=== PATIENT | male | born 1990 | race Caucasian/White ===

== ENCOUNTER 2020-10-02 10:52 | Outpatient (REF) | payer OTHER, SELFPAY ==
[2020-10-02 12:53] LABS: MANUAL DIFF FLAG NO
[2020-10-02 12:57] LABS: Basophils Percent Auto 0.7 % (0-2); Eosinophils Absolute Auto 0.2 X10*3/uL (0.0-0.4); Eosinophils Percent Auto 2.7 % (0-4); Hematocrit 47.7 % (42-52); Hemoglobin 16.4 g/dl (14.0-18.0); Imm Gran Abs Auto 0.02 X10*3/uL (0.00-0.03); Imm Gran Pct Auto 0.3 % (0.0-0.4); Lymphocytes Absolute Auto 2.5 X10*3/uL (1.2-4.9); Mean Corpuscular HGB Conc 34.4 g/dl (31.0-36.0); Mean Corpuscular Hemoglobin 33.1 pg (27.0-33.0); Mean Corpuscular Volume 96.4 fL (80-98); Mean Platelet Volume 9.2 fL (9.4-12.4); Monocytes Absolute Auto 0.5 X10*3/uL (0.1-1.2); Neutrophils Absolute Auto 2.8 X10*3/uL (2.0-8.3); Neutrophils Percent Auto 46.3 % (45-73); Platelet Count 191 X10*3/uL (160-400); Red Blood Count 4.95 X10*6/uL (4.60-5.80); Red Cell Distribution Width 11.9 % (11.0-16.0)
[2020-10-02 14:05] LABS: Alanine Aminotransferase 40 U/L (0-40); Albumin Level 4.6 g/dL (3.5-5.0); Alkaline Phosphatase 56 U/L (39-117); Anion Gap 17 (12-20); Aspartate Amino Transferase 27 U/L (5-37); Bilirubin Total 0.5 mg/dL (0.0-1.0); Blood Urea Nitrogen 19 mg/dL (9-16); Calcium 9.2 mg/dL (8.4-10.2); Carbon Dioxide 23 mmol/L (22-29); Chloride 106 mmol/L (96-108); Cholesterol 200 mg/dL; Estimated Glomerular Filt Rate > 60; Glucose Fasting 98 mg/dL (60-99); HDL Cholesterol 42 mg/dL; LDL Cholesterol Calculated 124 mg/dl; Potassium 4.2 mmol/l (3.3-5.1); Sodium 142 mmol/L (135-145); Total Protein 7.2 g/dL (6.5-8.0); Triglycerides 174 mg/dL
== END 2020-10-02 10:53 | disposition home or self-care (01) ==
LOC: HO.MANLDS 10:52
PROVIDERS: PCP Internal Medicine; Visit Provider Internal Medicine
DX: I47.1 Supraventricular tachycardia (principal)
CPT/HCPCS: 36415; 80053; 80061; 85025

== ENCOUNTER 2022-06-09 | Emergency (ER) | payer OTHER, SELFPAY ==
--- NOTE | ~2022-06-09 | XR_ITS ---
EXAMINATION: XR HAND, RIGHT CLINICAL INFORMATION: Injury to hand COMPARISON: None TECHNIQUE: PA, lateral, and oblique views of the right hand. FINDINGS: The bones and soft tissues are normal. No fracture. Alignment is anatomic. Joint spaces are maintained. No erosions or soft tissue calcifications. XR/XR hand RT 2V IMPRESSION: Normal right hand.
[2022-06-09 00:12] VITALS: BP 149/94; PULSE 72; RESP 16; TEMP 36.6; O2SAT 98; BMI 29.2
[2022-06-09 00:16] VITALS: BP 133/70; PULSE 62; RESP 18; TEMP 36.7; O2SAT 99
--- NOTE | 2022-06-09 00:16 | ED_ITS ---
HPI - Extremity Problem General Chief complaint: Extremity Problem Stated complaint: [employer] hand injury @ work Time Seen by Provider: 06/09/22 00:07 Source: patient Mode of arrival: ambulatory Limitations: no limitations History of Present Illness HPI Narrative: Patient is [employer] complaining of right hand pain after making an arrest patient has to hold the patient down and somehow injured his right hand no significant swelling patient able to make fist feeling less slightly spasm in the muscles no deficit neurovascular intact Related Data Allergies Allergy/AdvReac Type Severity Reaction Status Date / Time amoxicillin [AMOXICILLIN] Allergy Unknown HIVES Unverified 06/15/20 16:13 Penicillins [PENICILLINS] Allergy Unknown HIVES Unverified 06/15/20 16:13 Review of Systems Review of Systems: Yes all other systems are reviewed and are negative [facility] Social History Social History Advance Directives: No Advance Directives Information Provided: No Physical Exam Vital Signs: Vital Signs: Last Vital Signs Temp 98.1 F 06/09/22 00:16 Pulse 62 06/09/22 00:16 Resp 18 06/09/22 00:16 BP 133/70 06/09/22 00:16 Pulse Ox 99 06/09/22 00:16 O2 Del Method 06/09/22 00:16 BMI result Body Mass Index 29.2 Const: General: cooperative, healthy appearing, comfortable and no acute distress Orientation/consciousness: patient oriented x3 HEENT: Head: Yes normal to inspection Ears: hearing grossly normal bilaterally Neck: Neck: Yes normal visual inspection and Yes full ROM Resp: Effort & Inspection: normal respiratory effort and able to speak in complete sentences Auscultation: clear to auscultation bilaterally Cardio: Rate: regular rate Rhythm: regular rhythm GI: Inspection: Yes normal to inspection Palpation (GI): Soft to palpation and nontender Neuro: General: patient oriented x3 and gait normal Extrem: Hand/finger images: 1. Soft tissue tenderness at the base of right index and middle finger good faced neurovascular intact no deformity MDM - Extremity (Nontraumatic) MDM Narrative Medical decision making narrative: X-ray negative for fracture clinically patient has soft tissue injury of right hand advised to rest right hand apply ice ibuprofen for pain Discharge Plan Discharge Clinical Impression: Contusion of hand, right Patient Disposition: Home, Self-Care Instructions: Contusion in Adults (ED) Additional Instructions: Rest, apply ice, ibuprofen for pain X-rays negative for fracture Likely muscular strain which expected to get better in 2- 3 days with full recovery
--- NOTE | 2022-06-09 00:49 | PC.NURSE ---
My initial assessment was also performed at time of d/c. Pt. was sitting in a reclining chair, alert and oriented, under no apparent distress.
== END 2022-06-09 01:17 | disposition home or self-care (01) ==
PROVIDERS: Emergency Provider Internal Medicine; PCP Internal Medicine
DX: S60.221A Contusion of right hand, initial encounter (principal); Y29.XXXA Contact with blunt object, undetermined intent, initial encounter; Y93.9 Activity, unspecified; Y92.9 Unspecified place or not applicable; Y99.0 Civilian activity done for income or pay
CPT/HCPCS: 73120; 99282; 99283

== ENCOUNTER → 2022-06-11 08:07 | Outpatient (BNVA) | payer OTHER, SELFPAY | PROVIDERS: PCP Internal Medicine; Visit Provider Physician Assistant Medical | DX: S60.211A Contusion of right wrist, initial encounter (principal); Y29.XXXA Contact with blunt object, undetermined intent, initial encounter | CPT/HCPCS: 99203 ==

== ENCOUNTER → 2022-06-14 09:42 | Outpatient (BNVA) | payer OTHER, SELFPAY | PROVIDERS: PCP Internal Medicine; Visit Provider Physician Assistant Medical | DX: S60.211A Contusion of right wrist, initial encounter (principal); Y29.XXXA Contact with blunt object, undetermined intent, initial encounter | CPT/HCPCS: 99213 ==

== ENCOUNTER → 2022-06-21 10:34 | Outpatient (BNVA) | payer OTHER, SELFPAY | PROVIDERS: PCP Internal Medicine; Visit Provider Physician Assistant Medical | DX: S60.211A Contusion of right wrist, initial encounter (principal); Y29.XXXA Contact with blunt object, undetermined intent, initial encounter | CPT/HCPCS: 99213 ==

== ENCOUNTER 2022-06-24 13:30 | Outpatient (RCR) | payer OTHER, SELFPAY ==
--- NOTE | 2022-06-19 14:31 | MHC.OT.EP ---
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 He is now weaning from a wrist support and continues to avoid heavy use due to inc discomfort with lifting etc. Today he presents with complaint of wrist discomfort and weakness . Dec frame wirer strength and slight tremor noted with resistance. Pt will benefit from a short course of OT to progress strengthening ther ex to safely RTW Frequency and Duration: The patient will be seen 2x wk x 3 wks Short Term Goals: Indep with HEP Tolerate partial wt bearing on right hand Mild discomfort with daily actitivies including yard work and cycling Quick DASH score <15 pts Right frame wirer > 90 lb Jail Goals: Same as above Treatment Plan: Therapeutic Exercise Therapeutic Activity Home Exercise Program Patient Education Fluidotherapy Electronically Signed By: Stephanie tapia OT CHT CLT Please Sign and return to therapist. Thank you once again for your referral.
--- NOTE | 2022-07-18 09:44 | MHC.OT.DC ---
[address] [phone] F: [phone] Occupational Therapy Discharge Note Provider: Jessica Salter Diagnosis: Right wrist contusion/sprain Date of Surgery: Date of Evaluation: 06/19/22 Date of Discharge: 07/18/22 Treatments to Date: 2 Cancellations to Date: 1 No Shows to Date: Discharge Status: Discharge Summary: Last visit pt demonstrated good tolerance with hand ther ex. Reported trialed weed wacking but felt uncomfortable 2 cx due to therapist illness. Pt cx last scheduled appt. Electronically Signed By: Stephanie tapia OT CHT CLT Reviewed/agree with student documentation: N/A Therapist: Please Sign and return to therapist, thank you for your referral.
== END 2022-07-18 09:45 | disposition home or self-care (01) ==
LOC: HO.OT 13:30
PROVIDERS: PCP Internal Medicine; Visit Provider Physician Assistant Medical
DX: S63.501D Unspecified sprain of right wrist, subsequent encounter (principal); S60.211D Contusion of right wrist, subsequent encounter
CPT/HCPCS: 97110; 97165

== ENCOUNTER → 2022-06-27 11:09 | Outpatient (BNVA) | payer OTHER, SELFPAY | PROVIDERS: PCP Internal Medicine; Visit Provider Physician Assistant Medical | DX: S60.211A Contusion of right wrist, initial encounter (principal); Y29.XXXA Contact with blunt object, undetermined intent, initial encounter | CPT/HCPCS: 99213 ==

== ENCOUNTER 2023-11-12 11:10 | Outpatient (REF) | payer OTHER, SELFPAY ==
--- NOTE | ~2023-11-12 | XR_ITS ---
Examination: Bilateral ankles COMPARISON: Right ankle from 05/30/2018 CLINICAL INFORMATION: Bilateral pain TECHNIQUE: AP oblique and lateral views of each ankle. FINDINGS: Left ankle 3 views revealed no fractures subluxations or soft tissue abnormalities. Ankle mortise is well maintained. Right ankle 3 views revealed no evidence of fracture subluxation or degenerative changes. XR/XR ankle LT min 3V IMPRESSION: No evidence of fracture or degenerative changes.
--- NOTE | ~2023-11-12 | XR_ITS ---
Examination: Bilateral ankles COMPARISON: Right ankle from 05/30/2018 CLINICAL INFORMATION: Bilateral pain TECHNIQUE: AP oblique and lateral views of each ankle. FINDINGS: Left ankle 3 views revealed no fractures subluxations or soft tissue abnormalities. Ankle mortise is well maintained. Right ankle 3 views revealed no evidence of fracture subluxation or degenerative changes. XR/XR ankle RT min 3V IMPRESSION: No evidence of fracture or degenerative changes.
[2023-11-12 11:38] LABS: MANUAL DIFF FLAG NO
[2023-11-12 11:57] LABS: Basophils Percent Auto 0.7 % (0-2); Eosinophils Absolute Auto 0.1 X10*3/uL (0.0-0.4); Hematocrit 46.6 % (42.0-52.0); Hemoglobin 16.1 g/dl (14.0-18.0); Imm Gran Abs Auto 0.02 X10*3/uL (0.00-0.03); Imm Gran Pct Auto 0.4 % (0.0-0.4); Lymphocytes Absolute Auto 1.8 X10*3/uL (1.2-4.9); Lymphocytes Percent Auto 39.6 % (20-40); Mean Corpuscular HGB Conc 34.5 g/dl (31.0-36.0); Mean Corpuscular Hemoglobin 33.1 pg (27.0-33.0); Mean Corpuscular Volume 95.7 fL (80.0-98.0); Mean Platelet Volume 8.6 fL (9.4-12.4); Monocytes Absolute Auto 0.3 X10*3/uL (0.1-1.2); Monocytes Percent Auto 6.3 % (2-11); Neutrophils Absolute Auto 2.3 x10*3/uL (2.0-8.3); Platelet Count 183 X10*3/uL (160-400); Red Blood Count 4.87 X10*6/uL (4.60-5.80); White Blood Count 4.6 X10*3/uL (4.8-10.8)
[2023-11-12 12:50] LABS: Alanine Aminotransferase 17 U/L (0-40); Albumin Level 4.5 g/dL (3.5-5.0); Alkaline Phosphatase 49 U/L (39-117); Anion Gap 10 (12-20); Aspartate Amino Transferase 15 U/L (5-37); Bilirubin Total 0.6 mg/dL (0.0-1.0); Blood Urea Nitrogen 16 mg/dL (9-16); Calcium 9.5 mg/dL (8.4-10.2); Carbon Dioxide 26 mmol/L (22-29); Chloride 110 mmol/L (96-108); Cholesterol 220 mg/dL (<200); Estimated Glomerular Filt Rate > 60; Glucose Random 92 mg/dL (60-115); HDL Cholesterol 45 mg/dL (>40); LDL Cholesterol Calculated 144 mg/dL (<100); Sodium 142 mmol/L (135-145); Total Protein 7.3 g/dL (6.5-8.0); Triglycerides 155 mg/dL (<150); Vitamin D 25-OH Total 19.4 ng/mL (>30)
[2023-11-12 12:56] LABS: Folate 3.8 ng/mL (> or = 4.0); Vitamin B12 375 pg/mL (200-900)
[2023-11-13 04:03] LABS: HBS Num1 157.51 mIU/mL (0-7.99); HIV AB/AG Nonreactive (Nonreactive); HIV Num 1 0.06 S/CO (0.00-0.99); ~Hepatitis B Surface Antibody REACTIVE (Nonreactive)
[2023-11-16 16:13] LABS: Testosterone, Free 115.8 pg/mL (35.0-155.0); Testosterone, Total 585 ng/dL (250-1100)
== END 2023-11-12 11:11 | disposition home or self-care (01) ==
LOC: HO.LAB 11:10
PROVIDERS: PCP Internal Medicine; Visit Provider Internal Medicine
DX: S82.851D Displaced trimalleolar fracture of right lower leg, subsequent encounter for closed fracture with routine healing (principal); R53.83 Other fatigue; Z00.00 Encounter for general adult medical examination without abnormal findings
CPT/HCPCS: 36415; 73610; 80053; 80061; 82306; 82607; 82746; 84402; 84403; 85025; 86706; 87389

== ENCOUNTER → 2023-11-18 08:07 | Outpatient (REF) | payer OTHER, SELFPAY | LOC: HO.SL 08:07 | PROVIDERS: PCP Internal Medicine; Visit Provider Internal Medicine | DX: R06.83 Snoring (principal); R40.0 Somnolence | CPT/HCPCS: 95806 ==

== ENCOUNTER → 2023-11-18 19:00 | Outpatient (BNV) | payer OTHER, SELFPAY | PROVIDERS: PCP Internal Medicine; Visit Provider Internal Medicine | DX: R06.83 Snoring (principal) | CPT/HCPCS: 95806 ==